=== PATIENT | male | born 1975 | race Caucasian/White ===

== ENCOUNTER 2022-10-29 21:18 | Outpatient (CLI) | payer BC, SELFPAY | END 2022-10-29 21:19 | disposition home or self-care (01) | LOC: AMB 11-07 00:40 | PROVIDERS: Visit Provider Family Medicine | DX: R04.0 Epistaxis (principal) | CPT/HCPCS: A0998 ==

== ENCOUNTER 2022-10-29 21:48 | Emergency (ER) | payer BC, SELFPAY ==
[2022-10-29] VITALS (14 sets, daily range): BP systolic 76–130; BP diastolic 52–101; PULSE 63–91; RESP 16–18; TEMP 36.5; O2SAT 96–100; BMI 27.2
--- NOTE | 2022-10-29 21:58 | ED.EPISTAXIS ---
History of Present Illness General Time Seen by Provider: 21:58 Date Seen: 10/29/22 Chief Complaint: Epistaxis/Nosebleed Stated Complaint: Excessive Nosebleed,2nd one today Time Seen by Provider: 10/29/22 21:58 Source: patient, family, RN notes reviewed and old records reviewed Mode of arrival: ambulatory Limitations: no limitations History of Present Illness HPI Narrative: Naman is a 47-year-old male previously healthy who comes to the emergency room for evaluation of nose bleed. Initially 911 was called to his home but he declined transport. Naman's tells me that all day today he has had significant bleeding soaking at least 2 towels previously. He now has blood persistently dripping from his right nostril. Naman notes having cold-like symptoms a week ago. He denies any trauma to the nose. Not take blood thinners. He has not had to see ENT in past although his reports fairly common occurrence of epistaxis with him. Patient was feeling somewhat lightheaded earlier but has not had any chest pain. EMS tried to help him with interventions but patient declines a nose clip and would not lean back as he states he feels like he is drowning when he does that. Patient states that he describes pulsating bleeding earlier with in association with a heartbeat. He has not had fever or chills. Related Data Home Medications Medication Instructions Recorded Confirmed No Known Home Medications 10/29/22 10/29/22 Allergies Allergy/AdvReac Type Severity Reaction Status Date / Time No Known Drug Allergies Allergy Verified 10/30/22 00:34 Review of Systems Status of ROS: Reports: 10 or more systems reviewed and unremarkable except as noted in History and below Const: Denies: fever or chills Eyes: Denies: change in vision ENMT: Denies: throat pain or neck pain Cardio: Reports: lightheadedness; Denies: chest pain or shortness of breath with exertion Resp: Denies: shortness of breath GI: Denies: abdominal pain Musculo: Denies: neck pain PFSH PFSH Social History Smoking Status: Never smoker How often do you have a drink containing alcohol: 2-3 times a week AUDIT-C Alcohol total score: 3 Non-prescribed substance use: denies use Exam Narrative: Exam Narrative: Naman is a very pleasant gentleman moderately anxious noted to be seated in exam room for when I enter. He is leaning forward over a garbage can containing a towel that has a significant amount of blood on it. He has blood on his face as well. He is mentating normally at this time. He has good color. We do attempt to place Afrin and then liquid cocaine by gauze pad. He states that he feels like the blood is now coming out of the other nostril. I am unable to visualize given the amount of blood coming from his nose. It is a steady drip and ooze. I do not see any pulsations that patient had described earlier. I do pull gauze pad from right nostril and insert a 7.5 cm Patient has no further bleeding. However, patient became very pale and diaphoretic. We do lie him supine. He does not lose consciousness. He is bradycardic by my auscultatory findings. IV is placed 1 L of normal saline given. Const: Vital Signs, click to edit/add: Vital Signs - 24 hr 10/29/22 21:52 10/29/22 22:12 10/29/22 22:15 Temperature 97.7 F Pulse Rate [Right Pulse Oximeter] 91 Respiratory Rate 16 Blood Pressure [Le ft Upper Arm] 130/101 H Blood Pressure [Ri ght Upper Arm] 76/56 L 82/52 L Pulse Oximetry 97 Oxygen Delivery Me thod Room Air 10/29/22 22:20 10/29/22 22:25 10/29/22 22:30 Temperature Pulse Rate [Right Pulse Oximeter] 80 Respiratory Rate 18 Blood Pressure [Le ft Upper Arm] Blood Pressure [Ri ght Upper Arm] 108/86 124/81 114/96 H Pulse Oximetry 100 Oxygen Delivery Me thod Room Air 10/29/22 23:20 10/29/22 22:40 10/29/22 22:45 Temperature Pulse Rate [Right Pulse Oximeter] 72 83 73 Respiratory Rate 18 18 18 Blood Pressure [Le ft Upper Arm] Blood Pressure [Ri ght Upper Arm] 106/76 124/80 115/94 H Pulse Oximetry 98 100 99 Oxygen Delivery Me thod Room Air Room Air Room Air 10/29/22 22:55 10/29/22 23:10 10/29/22 23:25 Temperature Pulse Rate [Right Pulse Oximeter] 77 78 63 Respiratory Rate 18 18 18 Blood Pressure [Le ft Upper Arm] Blood Pressure [Ri ght Upper Arm] 127/86 119/86 107/76 Pulse Oximetry 99 98 99 Oxygen Delivery Me thod Room Air Room Air Room Air 10/29/22 23:45 Temperature Pulse Rate [Right Pulse Oximeter] 82 Respiratory Rate 18 Blood Pressure [Le ft Upper Arm] Blood Pressure [Ri ght Upper Arm] 121/81 Pulse Oximetry 96 Oxygen Delivery Me thod Room Air Course Course Hospital Course: Patient noted to be improved after fluids and lying supine. We will now allow to sit up in rinse his mouth. Fortunately, no further bleeding from the right nostril. Reevaluation(s) Reevaluation #1: Into tried to sit all the way up and had an episode of lightheadedness and nausea again. He did not have any vomiting why while here. He is feeling better lying supine. We will give him additional L of fluids as well as Ativan 0.5 mg IV. Vital Signs Vital signs: Initial Vital Signs Temperature 97.7 F 10/29/22 21:52 Temperature Source Temporal Artery Scan 10/29/22 21:52 Pulse Rate 91 10/29/22 21:52 Respiratory Rate 16 10/29/22 21:52 Blood Pressure 130/101 H 10/29/22 21:52 Blood Pressure Mean 110 10/29/22 21:52 Blood Pressure Position Sitting 10/29/22 21:52 Pulse Oximetry 97 10/29/22 21:52 Oxygen Delivery Method 10/29/22 21:52 Vital Signs Temperature 97.7 F 10/29/22 21:52 Pulse Rate 91 10/29/22 21:52 Respiratory Rate 16 10/29/22 21:52 Blood Pressure 130/101 H 10/29/22 21:52 Pulse Oximetry 97 10/29/22 21:52 Oxygen Delivery Method 10/29/22 21:52 Temperature 97.7 F 10/29/22 21:52 Pulse Rate 82 10/29/22 23:45 Respiratory Rate 18 10/29/22 23:45 Blood Pressure 121/81 10/29/22 23:45 Pulse Oximetry 96 10/29/22 23:45 Oxygen Delivery Method 10/29/22 23:45 MDM - Epistaxis MDM Narrative Medical decision making narrative: 1. Epistaxis-resolved with 7.5 cm rapid rhino placed. Hemoglobin is 11.7. Most previous value that I was able to find was 14.5 in 2016. Patient tells me that he does frequently give blood and values were 12-13. I would like patient to follow-up with ENT. Will place him on amoxicillin 500 mg p.o. b.i.d. x5 days. He will likely be able to discontinue this once the packing is removed. We did not find any evidence of low platelets or abnormal INR. Patient will follow-up with ENT in the next few days. 2. Vasovagal reaction-improved. Fluids given. 3. Disposition-home with his . Sleep with head of bed elevated. Do not bend over as this will increase pressure and cause increased bleeding. Antibiotics as directed. Tylenol as needed for discomfort. Patient noted to be significantly anxious but improved with Ativan. is wondering if we could have some for home. This is fine with me. Ativan 0.5 mg 1-2 tabs p.o. q.8 hours p.r.n. 10. [employer]. Medical Records Attestation: I reviewed the patient's medical records. Lab Data Attestation: I reviewed the patient's lab results. Labs: Lab Results 10/29/22 10/29/22 10/29/22 Range/Units 22:10 22:10 22:33 WBC 8.05 (4.50-11.00) K/uL RBC 3.70 L (4.30-5.90) m/uL Hgb 11.7 L (13.5-17.5) gm/dL Hct 34.2 L (37.0-53.0) % MCV 92 (80-100) fL MCH 32 (26-34) pg MCHC 34 (32-36) gm/dL RDW Coeff of Loni 12.4 (11.5-15.5) % Plt Count 312 (140-440) K/uL Neut % (Auto) 55.6 (42.0-72.0) % Lymph % (Auto) 30.4 (20-44) % [place] % (Auto) 10.2 (0.0-11.0) % Eos % (Auto) 2.2 (0.0-7.0) % Baso % (Auto) 0.6 (0.0-3.0) % Neut # (Auto) 4.47 (1.7-7.0) K/uL Lymph # (Auto) 2.45 (0.90-2.90) K/uL [place] # (Auto) 0.80 (0.00-0.90) K/UL Eos # (Auto) 0.18 (0.00-0.50) K/uL Baso # (Auto) 0.05 (0.00-0.30) K/uL INR 1.02 (0.91-1.10) Sodium 138 (135-149) mmol/L Potassium 3.9 (3.6-5.1) mmol/L Chloride 108 (96-114) mmol/L Carbon Dioxide 20 (20-32) mmol/L BUN 22 (5-24) mg/dL Creatinine 1.3 (0.5-1.5) mg/dL Estimated Creat Clear 73.21 Estimated GFR 67 ml/min Glucose 120 H (60-115) mg/dL Calcium 8.8 (8.4-10.6) mg/dL Discharge Plan Discharge Clinical Impression: Epistaxis, Vaso-vagal reaction Patient Disposition: Home, Self-Care Condition: Improved Additional Instructions: 1. Leave ill tampon in place. You will need to be on antibiotics to prevent infection as long as that is in place. Amoxicillin 500 mg twice daily. I would like you to see ENT doctor Viki for a consult. Please call [phone] on Monday morning for an appointment. 2. Sleep with head of bed elevated. Do not bend over as this increases pressures and may increase risk of bleeding. Tylenol may be used for discomfort. 3. Return to the ER for increased bleeding, fever or chills, additional symptoms. Prescriptions: No Action No Known Home Medications Follow Up/Referrals: Provider,Not a Local [Primary Care Provider] - Stand Alone Forms: [email or web address] Info Instructions
[2022-10-29] MEDS: COCAINE HCL 4 % 4 ML SOLUTION NOSTRIL-R (22:10)
[2022-10-29] MEDS: OXYMETAZOLINE 0.05% NASAL SPRAY 1 SPRAY NOSTRIL-B (22:10)
[2022-10-29] MEDS: 0.9 % SODIUM CHLORIDE 1000 ml 1,000 ML IV ×2 (22:12→23:40)
[2022-10-29 22:42] LABS: Chloride* 108 mmol/L (96-114); Potassium* 3.9 mmol/L (3.6-5.1); Sodium* 138 mmol/L (135-149)
[2022-10-29 22:44] LABS: Creatinine* 1.3 mg/dL (0.5-1.5); Est. Creatinine Clearance* 73.21; Estimated Glomerular Filt Rate 67 ml/min
[2022-10-29 22:45] LABS: Blood Urea Nitrogen* 22 mg/dL (5-24); Calcium* 8.8 mg/dL (8.4-10.6); Carbon Dioxide* 20 mmol/L (20-32); Glucose* 120 mg/dL (60-115)
[2022-10-29] MEDS: ONDANSETRON 2 MG/ML inj 4 MG IVP (22:45)
[2022-10-29 22:51] LABS: Basophils Absolute Auto 0.05 K/uL (0.00-0.30); Basophils Percent Auto 0.6 % (0.0-3.0); Eosinophils Absolute Auto 0.18 K/uL (0.00-0.50); Eosinophils Percent Auto 2.2 % (0.0-7.0); Hematocrit 34.2 % (37.0-53.0); Hemoglobin* 11.7 gm/dL (13.5-17.5); Immature Granulocytes Abs Auto 0.08 K/uL (0.00-0.30); Lymphocytes Absolute Auto 2.45 K/uL (0.90-2.90); Lymphocytes Percent Auto 30.4 % (20-44); Mean Corpuscular HGB Conc 34 gm/dL (32-36); Mean Corpuscular Hemoglobin 32 pg (26-34); Mean Corpuscular Volume 92 fL (80-100); Monocytes Percent Auto 10.2 % (0.0-11.0); Neutrophils Absolute Auto 4.47 K/uL (1.7-7.0); Neutrophils Percent Auto 55.6 % (42.0-72.0); Platelet Count* 312 K/uL (140-440); RDW Coefficient of Variation % 12.4 % (11.5-15.5); Slide Review Reflex No; White Blood Count* 8.05 K/uL (4.50-11.00)
[2022-10-29 23:27] LABS: INR 1.02 (0.91-1.10)
[2022-10-29] MEDS: LORazepam 2 MG/ML inj 0.5 MG IVP (23:42)
[2022-10-30] VITALS: BP 118/85; PULSE 82; RESP 18; O2SAT 96
[2022-10-30 00:30] VITALS: BP 119/82; PULSE 91; RESP 18; O2SAT 99
[2022-10-30 00:40] VITALS: BP 124/94; PULSE 91; RESP 18; O2SAT 98
[2022-10-30 00:50] VITALS: BP 118/89; PULSE 88; RESP 18; O2SAT 99
== END 2022-10-30 01:11 | disposition home or self-care (01) ==
PROVIDERS: Emergency Provider Family Medicine
DX: R04.0 Epistaxis (principal); R55 Syncope and collapse
CPT/HCPCS: 30901; 36415; 80048; 85025; 85610; 96361; 96374; 99283; 99284; A9270; J2060; J2405; J7030